=== PATIENT | male | born 1965 | race Caucasian/White ===

== ENCOUNTER 2020-08-09 18:01 | Emergency (ER) | payer BC ==
[~2020-08-09] VITALS: Ht 188 cm; Wt 124.3 kg
[~2020-08-09 18:01] MED LIST: ATENPOW10; METFORMIN
[2020-08-09 20:54] VITALS: BP 166/97
[2020-08-09] MEDS ORDERED: CARVEDILOL 3.125 MG TAB PO ONE (21:15)
[2020-08-09] MEDS ORDERED: HYDROcodone-ACET 5/325MG TAB PO ONE (21:15)
[2020-08-09] MEDS ORDERED: ceFAZolin 1GM/50ML 50 ML IV ONE (22:00)
== END 2020-08-09 22:26 | disposition left against medical advice (07) ==
LOC: ER 18:01
DX: S62.632A Displaced fracture of distal phalanx of right middle finger, initial encounter for closed fracture (principal); E11.9 Type 2 diabetes mellitus without complications; I10 Essential (primary) hypertension; E78.5 Hyperlipidemia, unspecified; Z95.1 Presence of aortocoronary bypass graft; Z53.29 Procedure and treatment not carried out because of patient's decision for other reasons; W54.0XXA Bitten by dog, initial encounter; Y93.89 Activity, other specified; Y92.89 Other specified places as the place of occurrence of the external cause; Y99.8 Other external cause status
CPT/HCPCS: 73140; 96365; 99284; J0690